=== PATIENT | female | born 1980 ===

== ENCOUNTER 2017-03-12 00:12 | Observation (INO) | payer BC, OTHER ==
--- NOTE | 2017-03-12 00:55 | ED PDOC ---
HPI: General Adult Chief Complaint (Provider): Medical evaluation History Per: EMS, Family History/Exam Limitations: clinical condition <Tamica Anthony Y - Last Filed: 03/13/17 04:15> <Becky Ochoa F - Last Filed: 03/13/17 09:26> Time Seen by Provider: 03/12/17 00:18 Chief Complaint (Nursing): Psychiatric Evaluation Additional Complaint(s): The patient is a 36yo female with history of chronic pain (per prior records), seizures (per family) is brought to the ED by EMS for evaluation s/p and episode of seizure earlier. Per EMS, patient had a post-ictal period where she was confused; they report the patient was able to walk down the stairs to the ambulance but when she saw the stretcher, she became combative and refused to get in. EMS report patient was combative on her way to the ED and was aggressive. A full HPi unavailable from the patient due to her clinical condition. (Tamica Anthony) Past Medical History Reviewed: Vital Signs, Unable To Obtain - Family History Family History: States: Unknown Family Hx <Tamica Anthony Y - Last Filed: 03/13/17 04:15> <Becky Ochoa F - Last Filed: 03/13/17 09:26> Vital Signs: Last Vital Signs Temp 98.2 F 03/12/17 00:17 Pulse 81 03/12/17 11:46 Resp 18 03/12/17 11:46 BP 117/75 03/12/17 11:46 Pulse Ox 100 03/12/17 11:46 - Home Medications Home Medications: Ambulatory Orders Medication Instructions Recorded levETIRAcetam [Keppra] 500 mg PO BID #20 tab 03/12/17 - Allergies Allergies/Adverse Reactions: Allergies Allergy/AdvReac Type Severity Reaction Status Date / Time No Known Allergies Allergy Verified 06/02/16 19:19 Review of Systems Review Of Systems: ROS cannot be obtained secondary to pt's inabilty to answer questions. (patient combative and agressice) <GabrielleEdjudah Y - Last Filed: 03/13/17 04:15> Physical Exam - Reviewed Nursing Documentation Reviewed: Yes Vital Signs Reviewed: Yes - Physical Exam Appears: Positive for: Well, Non-toxic Skin: Positive for: Normal Color, Warm, Dry Cardiovascular/Chest: Positive for: Regular Rate, Rhythm Respiratory: Positive for: Normal Breath Sounds Gastrointestinal/Abdominal: Positive for: Normal Exam Neurologic/Psych: Positive for: Alert (agitated, required sedation for alleviation of agitation and for safety of pt and others around the patinet ( staff in ER)). Negative for: Oriented <Tamica Anthony Y - Last Filed: 03/13/17 04:15> - Laboratory Results Result Diagrams: 03/12/17 01:05 03/12/17 01:05 <Tamica Anthony - Last Filed: 03/13/17 04:15> - Laboratory Results Result Diagrams: 03/12/17 01:05 03/12/17 01:05 - Physician Consult Information Physician Contacted: Kit Dutta <Becky Ochoa - Last Filed: 03/13/17 09:26> - Physician Consult Information Outcome Of Conversation: Recommends Keppra 500 mg bid, will see in office tomorrow @ 9 AM. (Becky Ochoa) ED OBSERVATION Date of observation admission: 03/12/17 Time of observation admission: 00:28 <Tamica Anthony Y - Last Filed: 03/13/17 04:15> <Becky Ochoa - Last Filed: 03/13/17 09:26> - Progress Note Progress Note: 03/12/17 03:49 CT Head FINDINGS: Brain: Minimal atrophy. No intracranial hemorrhage. No mass. No definite edema. Ventricles: No hydrocephalus. Bones/joints: No acute fracture. Soft tissues: Unremarkable. Sinuses: Scattered minimal mucosal thickening. Mastoid air cells: No mastoid effusion. Orbits: Unremarkable as visualized. IMPRESSION: 1. No acute intracranial abnormality. 2. Incidental/non-acute findings are described above. 03/12/17 05:28 Resting in room, vitals stable. 03/12/17 06:52 Patient to be signed out to Dr. Ochoa pending clinical sobriety and urinalysis/ utox 03/13/17 04:14 (Tamica Anthony) Disposition - Patient ED Disposition Is Patient to be Admitted: Transfer of Care - Disposition Disposition: Transfer of Care Disposition Time: 07:28 Patient Signed Over To: Becky Ochoa Handoff Comments: pending clinical sobriety and urinalysis utox <Tamica Anthony Y - Last Filed: 03/13/17 04:15> <Becky Ochoa F - Last Filed: 03/13/17 09:26> - Clinical Impression Clinical Impression: Seizure - Disposition Condition: STABLE
[2017-03-12 01:08] LABS: BASO % 0.5 % (0.0-2.0); EOS # 0.1 K/uL (0.0-0.7); EOS % 1.6 % (0.0-4.0); LYMPH # 0.8 K/uL (1.0-4.3); LYMPH % 13.3 % (20.0-40.0); MEAN CELL VOLUME 65.2 fl (81.0-99.0); MEAN CORPUSCULAR HEMOGLOBIN 19.2 pg (27.0-31.0); MEAN CORPUSCULAR HGB CONC 29.4 g/dL (33.0-37.0); MEAN PLATELET VOLUME 9.7 fl (7.2-11.7); MONO # 0.6 K/uL (0.0-0.8); MONO % 9.6 % (0.0-10.0); NEUT # 4.7 K/uL (1.8-7.0); RED CELL DISTRIBUTION WIDTH 19.7 % (11.5-14.5); WHITE BLOOD COUNT 6.3 K/uL (4.8-10.8)
[2017-03-12 01:18] LABS: ALB/GLOB RATIO 1.6 (1.0-2.1); ALCOHOL SERUM < 10 mg/dl (0-10); ALKALINE PHOSPHATASE 66 U/L (38-126); ALT/SGPT 36 U/L (9-52); AST/SGOT 36 U/L (14-36); BILIRUBIN,TOTAL 0.4 mg/dl (0.2-1.3); BLOOD UREA NITROGEN 16 mg/dl (7-17); CALCIUM 8.9 mg/dL (8.4-10.2); CARBON DIOXIDE 21 mmol/L (22-30); CHLORIDE 106 mmol/L (98-107); GFR AFRICAN-AMERICAN > 60; GLUCOSE,RANDOM 139 mg/dL (65-105); POTASSIUM 3.3 MMOL/L (3.6-5.0); SODIUM 136 mmol/l (132-148); TOTAL PROTEIN 6.8 G/DL (6.3-8.2)
[2017-03-12 03:03] VITALS: TEMP 98.2
--- NOTE | 2017-03-12 03:31 | CT ---
EXAM: CT Head Without Intravenous Contrast CLINICAL HISTORY: 36 years old, female; Signs and symptoms; Altered mental status/memory loss TECHNIQUE: Axial computed tomography images of the head/brain without intravenous contrast. This CT exam was performed using one or more of the following dose reduction techniques: automated exposure control, adjustment of the mA and/or kV according to patient size, and/or use of iterative reconstruction technique. Coronal and sagittal reformatted images were created and reviewed. COMPARISON: No relevant prior studies available. FINDINGS: Brain: Minimal atrophy. No intracranial hemorrhage. No mass. No definite edema. Ventricles: No hydrocephalus. Bones/joints: No acute fracture. Soft tissues: Unremarkable. Sinuses: Scattered minimal mucosal thickening. Mastoid air cells: No mastoid effusion. Orbits: Unremarkable as visualized. IMPRESSION: 1. No acute intracranial abnormality. 2. Incidental/non-acute findings are described above.
[2017-03-12 06:07] VITALS: O2SAT 100
[2017-03-12] MEDS ORDERED: Potassium Chloride 20 mEq ER Tab PO ONE ×2 (06:32→06:50)
[2017-03-12 07:37] LABS: RBC URINE 280 /hpf (0-3); URINE BACTERIA RARE (<OCC); URINE BILIRUBIN NEGATIVE (NEGATIVE); URINE BLOOD LARGE (NEGATIVE); URINE COLOR YELLOW (YELLOW); URINE GLUCOSE (UA) NEG (Normal); URINE KETONE NEGATIVE (NEGATIVE); URINE LEUKOCYTE ESTERASE TRACE Leu/uL (Negative); URINE PROTEIN 30 mg/dL (NEGATIVE); URINE UROBILINOGEN 0.2-1.0 mg/dL (0.2-1.0); WBC URINE 7 /hpf (0-5)
[2017-03-12 11:47] VITALS: BP 117/75; PULSE 81; RESP 18
--- NOTE | 2017-03-13 18:16 | CARD ---
APPROVED REPORT EKG Measurement Heart [id number] <Conclusion> Normal sinus rhythm Normal ECG
== END 2017-03-12 11:46 | disposition home or self-care (01) ==
LOC: H.ER 00:12 → H.EROBSV 00:28
PROVIDERS: ADMIT Emergency Medicine; ATTEND Emergency Medicine
DX: G40.909 Epilepsy, unspecified, not intractable, without status epilepticus (principal)
CPT/HCPCS: 70450; 80053; 81003; 85025; 93005; 96372; 99283; G0378; G0480; J1630; J2060

== ENCOUNTER 2017-04-26 11:26 | Emergency (ER) | payer BC, OTHER ==
[2017-04-26 11:34] VITALS: TEMP 98.5; O2SAT 100
[2017-04-26 11:35] VITALS: BMI 17.9
--- NOTE | 2017-04-26 12:13 | ED PDOC ---
HPI: Female Pain Time Seen by Provider: 04/26/17 12:02 Chief Complaint (Nursing): Female Genitourinary Chief Complaint (Provider): Female Genitourinary History Per: Patient History/Exam Limitations: no limitations Onset/Duration Of Symptoms: Days (x3-4 months) Current Symptoms Are (Timing): Still Present Additional Complaint(s): Lianne Fraser is a 36 year old female presenting to the ED for an evaluation of heavy vaginal bleeding occurring for 3-4 months prior to arrival. The patient states her menstrual cycle lasts for 14-15 days at a time with heavy cramping. She normally has to change her pad 3-4 times a night due to the heavy bleeding, and often experiences hemorrhages causing her to wet her bed and clothes. She states having a laparoscopic procedure completed for her cramps. She takes Keppra for seizures, Naprosyn for headaches, Advil for pain, and Ibuprofen for her back pain. The patient states she cannot see her regulatory consultant until July which prompted her ED visit today. She denies fever or any allergies to medications. PMD: Non H Provider Past Medical History Reviewed: Historical Data, Nursing Documentation, Vital Signs Vital Signs: Last Vital Signs Temp 98.5 F 04/26/17 11:33 Pulse 67 04/26/17 11:33 Resp 18 04/26/17 11:33 BP 109/67 04/26/17 11:33 Pulse Ox 100 04/26/17 11:33 - Family History Family History: States: Unknown Family Hx - Home Medications Home Medications: Ambulatory Orders Medication Instructions Recorded levETIRAcetam [Keppra] 500 mg PO BID #20 tab 03/12/17 - Allergies Allergies/Adverse Reactions: Allergies Allergy/AdvReac Type Severity Reaction Status Date / Time No Known Allergies Allergy Verified 06/02/16 19:19 Review of Systems ROS Statement: Except As Marked, All Systems Reviewed And Found Negative Genitourinary Female: Positive for: Vaginal Bleeding (heavy associated with cramping) Musculoskeletal: Positive for: Back Pain Neurological: Positive for: Headache Physical Exam - Reviewed Nursing Documentation Reviewed: Yes Vital Signs Reviewed: Yes - Physical Exam Appears: Positive for: Non-toxic, No Acute Distress Head Exam: Positive for: ATRAUMATIC, NORMOCEPHALIC Skin: Positive for: Pallor Cardiovascular/Chest: Positive for: Regular Rate, Rhythm. Negative for: Murmur Respiratory: Positive for: Normal Breath Sounds. Negative for: Respiratory Distress Pelvic Exam: Positive for: External Exam Normal, Speculum Exam Normal (no active bleeding of cervix or cervical vault), Blood (very thin bloody fluid in cervix), Tender Uterus (and external bilateral tenderness ), Other (chaperoned by REY Cook) Neurologic/Psych: Positive for: Alert, Oriented (x3) - Laboratory Results Result Diagrams: 04/26/17 13:00 04/26/17 13:00 - ECG O2 Sat by Pulse Oximetry: 100 (RA) Pulse Ox Interpretation: Normal Medical Decision Making Medical Decision Making: Time: 12:02 Impression: Female Genitourinary Plan: * Type and Screen * CMP * CBC (with differential) * Partial Thromboplastin Time * Prothrombin Time * US Transvaginal * Reevaluation Scribe Attestation: Documented by Kasey Harris, acting as a scribe for Freya Ramos MD. Provider Scribe Attestation: All medical record entries made by the Scribe were at my direction and personally dictated by me. I have reviewed the chart and agree that the record accurately reflects my personal performance of the history, physical exam, medical decision making, and the department course for this patient. I have also personally directed, reviewed, and agree with the discharge instructions and disposition. US - submucosal fibroids. anemia at baseline. patietn is not actively bleeding. will discharge. Disposition - Clinical Impression Clinical Impression: Fibroids, submucosal - Patient ED Disposition Is Patient to be Admitted: No Doctor Will See Patient In The: Office Counseled Patient/Family Regarding: Diagnosis, Need For Followup - Disposition Referrals: Kelton Diggs MD [Non-Staff] - Disposition: Routine/Home Disposition Time: 14:00 Condition: STABLE Instructions: Uterine Fibroids (ED) Forms: Actions (Mohawk) Print Language: KYRGYZ - POA Present On Arrival: None
[2017-04-26 13:23] LABS: BASO % 0.5 % (0.0-2.0); EOS # 0.1 K/uL (0.0-0.7); EOS % 2.5 % (0.0-4.0); HEMATOCRIT 26.7 % (34.0-47.0); LYMPH # 0.9 K/uL (1.0-4.3); MEAN CELL VOLUME 66.5 fl (81.0-99.0); MEAN CORPUSCULAR HEMOGLOBIN 19.4 pg (27.0-31.0); MEAN CORPUSCULAR HGB CONC 29.2 g/dL (33.0-37.0); MEAN PLATELET VOLUME 9.7 fl (7.2-11.7); MONO # 0.4 K/uL (0.0-0.8); MONO % 11.8 % (0.0-10.0); NEUT # 1.8 K/uL (1.8-7.0); NEUT % 56.2 % (50.0-75.0); RED CELL DISTRIBUTION WIDTH 20.4 % (11.5-14.5); WHITE BLOOD COUNT 3.2 K/uL (4.8-10.8)
[2017-04-26 13:41] LABS: ALB/GLOB RATIO 1.5 (1.0-2.1); ALKALINE PHOSPHATASE 61 U/L (38-126); ALT/SGPT 41 U/L (9-52); AST/SGOT 38 U/L (14-36); BILIRUBIN,TOTAL 0.3 mg/dl (0.2-1.3); BLOOD UREA NITROGEN 13 mg/dl (7-17); CALCIUM 9.5 mg/dL (8.4-10.2); CARBON DIOXIDE 26 mmol/L (22-30); CHLORIDE 105 mmol/L (98-107); GFR AFRICAN-AMERICAN > 60; GLUCOSE,RANDOM 77 mg/dL (65-105); PARTIAL THROMBOPLASTIN TIME 28.3 Seconds (25.6-37.1); POTASSIUM 4.2 MMOL/L (3.6-5.0); SODIUM 139 mmol/l (132-148); TOTAL PROTEIN 7.2 G/DL (6.3-8.2)
--- NOTE | 2017-04-26 14:13 | US ---
PROCEDURE: HISTORY: prolonged vaginal bleeding COMPARISON: 08/24/2015 TECHNIQUE: Transvaginal FINDINGS: The uterus measures 10.4 x 5.6 x 6.9 centimeters. The endometrium measures 19 millimeters. There is a 2.1 centimeter central submucosal leiomyoma as well as a 4.2 centimeter sub serosal leiomyoma along the fundus posteriorly. The right ovary measures 3.6 x 1.8 x 1.9 centimeters. Left ovary measures 2.6 x 1.8 x 3.9 centimeters. There is no free fluid the pelvis. IMPRESSION: Enlarged leiomyomatous uterus.
[2017-04-26 14:31] VITALS: BP 116/75; PULSE 75; RESP 14
== END 2017-04-26 14:25 | disposition home or self-care (01) ==
LOC: H.ER 11:26
DX: D25.9 Leiomyoma of uterus, unspecified (principal)

== ENCOUNTER 2017-08-07 16:01 | Observation (INO) | payer BC, OTHER ==
[2017-08-07 16:01] VITALS: BMI 17.9
[2017-08-07] MEDS ORDERED: DiphenhydrAMINE 50 mg/ml Inj IVP STA (16:41)
[2017-08-07] MEDS ORDERED: DiphenhydrAMINE 50 mg/ml Inj ONE (16:59)
[2017-08-07 17:12] LABS: BASO % 0.5 % (0.0-2.0); EOS % 0.5 % (0.0-4.0); HEMOGLOBIN 11.2 g/dL (12.0-16.0); LYMPH # 1.2 K/uL (1.0-4.3); LYMPH % 23.5 % (20.0-40.0); MEAN CELL VOLUME 76.2 fl (81.0-99.0); MEAN CORPUSCULAR HEMOGLOBIN 23.8 pg (27.0-31.0); MEAN CORPUSCULAR HGB CONC 31.3 g/dL (33.0-37.0); MEAN PLATELET VOLUME 9.7 fl (7.2-11.7); MONO # 0.3 K/uL (0.0-0.8); NEUT # 3.4 K/uL (1.8-7.0); NEUT % 68.5 % (50.0-75.0); NRBC % 0.1 % (0.0-0.0); RBC 4.71 Mil/uL (3.80-5.20); RED CELL DISTRIBUTION WIDTH 32.5 % (11.5-14.5)
[2017-08-07 17:14] LABS: ALB/GLOB RATIO 1.5 (1.0-2.1); ALBUMIN 4.6 g/dL (3.5-5.0); ALT/SGPT 35 U/L (9-52); AST/SGOT 33 U/L (14-36); BLOOD UREA NITROGEN 9 mg/dl (7-17); CALCIUM 9.8 mg/dL (8.4-10.2); GFR AFRICAN-AMERICAN > 60; GFR NON-AFRICAN AMERICAN > 60
[2017-08-07] MEDS ORDERED: Potassium & Sodium Phosphate PO STA (17:16)
--- NOTE | 2017-08-07 17:25 | ED PDOC ---
HPI: Headache Time Seen by Provider: 08/07/17 16:12 Chief Complaint (Nursing): Headache Chief Complaint (Provider): Headache History Per: Patient History/Exam Limitations: no limitations Onset/Duration Of Symptoms: Hrs (This morning) Current Symptoms Are (Timing): Still Present Additional History Per: Family (Daughter) Additional Complaint(s): Patient is a 37 y/o female with past medical history of chronic headaches, seizures, and iron infusion anemia (she has had transfusions in the past), complaining of headache since waking up this morning. Patient reports the headache involves both sides of the face and the whole head radiating down to the neck. She reports this is similar to previous episodes and she has had for years. Patient also reports she had a seizure this morning, which her daughter reports lasted about 4 minutes. Patient states she did not want to come to the ED initially, but decided to come in when headache worsened. She reports associated nausea, 2 episodes of non-bloody/non-bilious vomiting, lightheadedness, and diffused weakness. She denies any focal weakness/numbness, difficulty with speech, or difficulty walking. PCP: Dr. Kiser Past Medical History Reviewed: Historical Data, Nursing Documentation, Vital Signs Vital Signs: Last Vital Signs Temp 99.1 F 08/07/17 16:05 Pulse 77 08/07/17 16:05 Resp 19 08/07/17 16:05 BP 130/51 L 08/07/17 16:05 Pulse Ox 100 08/07/17 16:05 - Medical History PMH: Anemia (Iron infusion), Seizures Denies: Chronic Kidney Disease Other PMH: Chronic Headache - Surgical History Surgical History: No Surg Hx - Family History Family History: States: No Known Family Hx, Unknown Family Hx - Social History Current smoker - smoking cessation education provided: No Alcohol: None Drugs: Denies - Home Medications Home Medications: Ambulatory Orders Medication Instructions Recorded levETIRAcetam [Keppra] 500 mg PO BID #20 tab 03/12/17 - Allergies Allergies/Adverse Reactions: Allergies Allergy/AdvReac Type Severity Reaction Status Date / Time No Known Allergies Allergy Verified 08/07/17 16:03 Review of Systems ROS Statement: Except As Marked, All Systems Reviewed And Found Negative (and as per HPI) Constitutional: Positive for: Weakness Gastrointestinal: Positive for: Nausea, Vomiting (2 episodes, non-bloody/non- bilious) Neurological: Positive for: Headache, Other (Lightheadedness, No difficulty walking). Negative for: Weakness, Numbness, Change in Speech Physical Exam - Reviewed Nursing Documentation Reviewed: Yes Vital Signs Reviewed: Yes - Physical Exam Appears: Positive for: Non-toxic, In Acute Distress Head Exam: Positive for: ATRAUMATIC, NORMOCEPHALIC Skin: Positive for: Warm, Dry Eye Exam: Positive for: EOMI, PERRL. Negative for: Conjunctival injection ENT: Positive for: Pharynx Is (clear with tacky mucus membranes) Neck: Positive for: Painless ROM, Supple Cardiovascular/Chest: Positive for: Regular Rate, Rhythm, Chest Non Tender. Negative for: Murmur Respiratory: Positive for: Normal Breath Sounds. Negative for: Wheezing, Respiratory Distress Gastrointestinal/Abdominal: Positive for: Soft. Negative for: Tenderness Back: Positive for: Normal Inspection. Negative for: Decreased ROM Extremity: Positive for: Normal ROM. Negative for: Deformity Lymphatic: Negative for: Adenopathy Neurologic/Psych: Positive for: Alert, Oriented (x3), Mood/Affect (anxious mood and sad affect). Negative for: Motor/Sensory Deficits, Aphasia, Facial Droop - Laboratory Results Result Diagrams: 08/07/17 16:52 08/07/17 16:52 - ECG O2 Sat by Pulse Oximetry: 100 (RA) Pulse Ox Interpretation: Normal Medical Decision Making Medical Decision Makin:13 Initial Impression: Breakthrough seizure acute on chronic headache Differential include but not limited to: Electrolyte abnormality, anemia, migraine headache, dehydration, subtherapeutic heparin Initial Plan: --Labs --ED Urine --ED Urine Dipstick --Drug Screen, Urine --Alcohol Serum --Taxicab Coordinator Cont --IV Insertion (Saline lock) --Benadryl 25 mg IVP --Reglan 10 mg IVP --Tylenol 975 mg PO --CT Head W/O Contrast 17:16 --Neutra-Phos 1 pkt PO -Condition discussed with Dr. Kit Dutta who advises repeat CThead and toradol for pain control. EXAM: CT Head Without Intravenous Contrast EXAM DATE/TIME: 08/07/2017 4:40 PM CLINICAL HISTORY: 37 years old, female; Signs and symptoms; Dizziness and other: Headache; Patient HX: Chronic headaches, and seizures; Additional info: Dizziness headache TECHNIQUE: Axial computed tomography images of the head/brain without intravenous contrast. All CT scans at this facility use one or more dose reduction techniques, viz.: automated exposure control; ma/kV adjustment per patient size (including targeted exams where dose is matched to indication; i.e. head); or iterative reconstruction technique. Coronal and sagittal reformatted images were created and reviewed. COMPARISON: CT - HEAD W/O CONTRAST 2017-03-12 02:43 FINDINGS: Brain: Ventricles are normal in size and configuration. There is no midline shift. There is mild prominence of sulci and gyri. There are no intra-axial or extra-axial mass lesions or areas of hemorrhage. There are no abnormal fluid collections. Moran-white differentiation is maintained. Ventricles: See above. Bones: Cranial vault is intact. Soft tissues: unremarkable Sinuses: There is no acute sinusitis. Ears and mastoids: Middle ears and mastoids are unremarkable Orbits: Orbital contents are unremarkable. IMPRESSION: No acute intracranial abnormality Thank you for allowing us to participate in the care of your patient. Dictated and Authenticated by: Eladia Lopez MD 08/07/2017 7:52 PM Eastern Time ([place] & [place]) 8p DW pt findings. Pt reports some improvement of symptoms but continues to have pain and parasthesias. Toradol ordered. VANNA Uribe Hospitalist for hospitalization (for Dr Smith.) Pt with seizure and hypophosphatemia requiring observation. Scribe Attestation: Documented by Son Cano, acting as a scribe for David Sanchez MD Provider Scribe Attestation: All medical record entries made by the Scribe were at my direction and personally dictated by me. I have reviewed the chart and agree that the record accurately reflects my personal performance of the history, physical exam, medical decision making, and the department course for this patient. I have also personally directed, reviewed, and agree with the discharge instructions and disposition. Disposition - Clinical Impression Clinical Impression: Seizure, Hypophosphatemia - Disposition Disposition Time: 20:00 Condition: GUARDED - Pt Status Changed To: Hospital Disposition Of: Observation - POA Present On Arrival: Falls Or Trauma
[2017-08-07 17:27] LABS: IRON 107 ug/dL (37-170)
[2017-08-07 17:36] LABS: % IRON SATURATION 28 % (20-55); TOTAL IRON BINDING CAPACITY 375 ug/dL (250-450)
[2017-08-07 17:41] LABS: SQUAMOUS EPITHIAL 32 /hpf (0-5); URINE BACTERIA OCC (<OCC); URINE BILIRUBIN NEGATIVE (NEGATIVE); URINE BLOOD NEGATIVE (NEGATIVE); URINE CLARITY CLOUDY (Clear); URINE COLOR YELLOW (YELLOW); URINE GLUCOSE (UA) NEG (Normal); URINE LEUKOCYTE ESTERASE NEG Leu/uL (Negative); URINE NITRATE NEGATIVE (NEGATIVE); URINE PROTEIN NEGATIVE (NEGATIVE); URINE UROBILINOGEN 0.2-1.0 mg/dL (0.2-1.0)
[2017-08-07 17:46] LABS: BARBITURATES, UR NEGATIVE (NEGATIVE); BENZODIAZEPINES, UR NEGATIVE (NEGATIVE); OPIATES, UR NEGATIVE (NEGATIVE); PHENCYCLIDINE, UR NEGATIVE (NEGATIVE)
[2017-08-07 17:48] LABS: FERRITIN 85.5 ng/Ml (6.24-137.0)
--- NOTE | 2017-08-07 19:52 | CT ---
EXAM: CT Head Without Intravenous Contrast EXAM DATE/TIME: 08/07/2017 4:40 PM CLINICAL HISTORY: 37 years old, female; Signs and symptoms; Dizziness and other: Headache; Patient HX: Chronic headaches, and seizures; Additional info: Dizziness headache TECHNIQUE: Axial computed tomography images of the head/brain without intravenous contrast. All CT scans at this facility use one or more dose reduction techniques, viz.: automated exposure control; ma/kV adjustment per patient size (including targeted exams where dose is matched to indication; i.e. head); or iterative reconstruction technique. Coronal and sagittal reformatted images were created and reviewed. COMPARISON: CT - HEAD W/O CONTRAST 2017-03-12 02:43 FINDINGS: Brain: Ventricles are normal in size and configuration. There is no midline shift. There is mild prominence of sulci and gyri. There are no intra-axial or extra-axial mass lesions or areas of hemorrhage. There are no abnormal fluid collections. Moran-white differentiation is maintained. Ventricles: See above. Bones: Cranial vault is intact. Soft tissues: unremarkable Sinuses: There is no acute sinusitis. Ears and mastoids: Middle ears and mastoids are unremarkable Orbits: Orbital contents are unremarkable. IMPRESSION: No acute intracranial abnormality
--- NOTE | 2017-08-07 21:14 | CP.PCM.HP ---
History of Present Illness - History of Present Illness History of Present Illness: CC: Breakthrough seizures, DOUGHERTY HPI: This is a 37 y/o female with MHx significant for chronic DOUGHERTY (unclear diagnosis), seizures, and chronic Fe deficiency anemia who comes in beceause she had a fall this AM and hit head and had a DOUGHERTY since then, she also had a breakthrough seizure this AM. Per the daughter, seizure lasted for 4 minutes. She recovered alright from there, and only came in because of persistent DOUGHERTY. Patient did report some nausea earlier, but that has resolved. Denies CP/SOB or focal weakness. PCP: Dr. Kiser ROS: 14 systems reviewed, negative other than HPI MHx: Seizure d/o, DOUGHERTY, anemia SHx: None Allergies: NKDA Medications: As per med rec Family Hx: Reviewed, no relevant findings Social Hx: Lives with family, no tobacco, no EtOH Present on Admission - Present on Admission Any Indicators Present on Admission: No Past Patient History - Past Social History Alcohol: None Drugs: Denies - CARDIAC Hx Cardiac Disorders: No - PULMONARY Hx Respiratory Disorders: No - NEUROLOGICAL Hx Seizures: Yes - HEENT Hx HEENT Problems: No - RENAL Hx Chronic Kidney Disease: No - ENDOCRINE/METABOLIC Hx Endocrine Disorders: No - HEMATOLOGICAL/ONCOLOGICAL Hx Anemia: Yes (Iron infusion) - INTEGUMENTARY Hx Dermatological Problems: No - MUSCULOSKELETAL/RHEUMATOLOGICAL Hx Musculoskeletal Disorders: No - GASTROINTESTINAL Hx Gastrointestinal Disorders: No - GENITOURINARY/GYNECOLOGICAL Hx Genitourinary Disorders: No - PSYCHIATRIC Hx Psychophysiologic Disorder: No Hx Substance Use: No - SURGICAL HISTORY Hx Surgeries: No - ANESTHESIA Hx Anesthesia: No Meds Allergies/Adverse Reactions: Allergies Allergy/AdvReac Type Severity Reaction Status Date / Time No Known Allergies Allergy Verified 08/07/17 16:03 Physical Exam - Constitutional Appears: No Acute Distress - Head Exam Head Exam: ATRAUMATIC, NORMOCEPHALIC - Eye Exam Eye Exam: EOMI, PERRL - ENT Exam ENT Exam: Mucous Membranes Moist - Neck Exam Neck exam: Positive for: Full Rom - Respiratory Exam Respiratory Exam: Clear to Auscultation Bilateral, NORMAL BREATHING PATTERN - Cardiovascular Exam Cardiovascular Exam: REGULAR RHYTHM, +S1, +S2 - GI/Abdominal Exam GI & Abdominal Exam: Normal Bowel Sounds, Soft - Extremities Exam Extremities exam: Positive for: full ROM, normal inspection - Neurological Exam Neurological exam: Alert, CN II-XII Intact, Oriented x3 - Psychiatric Exam Psychiatric exam: Normal Affect, Normal Mood - Skin Skin Exam: Dry, Warm Results - Vital Signs Recent Vital Signs: Last Vital Signs Temp 99.1 F 08/07/17 16:05 Pulse 65 08/07/17 18:13 Resp 18 08/07/17 18:13 BP 100/65 08/07/17 18:13 Pulse Ox 100 08/07/17 20:38 - Labs Result Diagrams: 08/07/17 16:52 08/07/17 16:52 Labs: Laboratory Results - last 24 hr 08/07/17 08/07/17 08/07/17 16:28 16:52 16:52 WBC 5.0 D RBC 4.71 Hgb 11.2 L D Hct 35.9 MCV 76.2 L D MCH 23.8 L MCHC 31.3 L RDW 32.5 H Plt Count 138 MPV 9.7 Neut % (Auto) 68.5 Lymph % (Auto) 23.5 [place] % (Auto) 7.0 Eos % (Auto) 0.5 Baso % (Auto) 0.5 Neut # 3.4 Lymph # 1.2 [place] # 0.3 Eos # 0.0 Baso # 0.0 Sodium Potassium Chloride Carbon Dioxide Anion Gap BUN Creatinine Est GFR ( Amer) Est GFR (Non-Af Amer) POC Glucose (mg/dL) 77 Random Glucose Calcium Phosphorus Magnesium Iron TIBC % Saturation Ferritin Total Bilirubin AST ALT Alkaline Phosphatase Total Protein Albumin Globulin Albumin/Globulin Ratio Urine Color Urine Clarity Urine pH Ur Specific [place] Urine Protein Urine Glucose (UA) Urine Ketones Urine Blood Urine Nitrate Urine Bilirubin Urine Urobilinogen Ur Leukocyte Esterase Urine RBC (Auto) Urine Microscopic WBC Ur Squamous Epith Cells Urine Bacteria Urine Opiates Screen Urine Methadone Screen Ur Barbiturates Screen Carbamazepine < 3.0 L Ur Phencyclidine Scrn Ur Amphetamines Screen U Benzodiazepines Scrn U Oth Cocaine Metabols U Cannabinoids Screen Alcohol, Quantitative Blood Type Antibody Screen BBK History Checked 08/07/17 08/07/17 08/07/17 16:52 16:52 16:52 WBC RBC Hgb Hct MCV MCH MCHC RDW Plt Count MPV Neut % (Auto) Lymph % (Auto) [place] % (Auto) Eos % (Auto) Baso % (Auto) Neut # Lymph # [place] # Eos # Baso # Sodium 137 Potassium 3.6 Chloride 104 Carbon Dioxide 23 Anion Gap 14 BUN 9 Creatinine 0.7 Est GFR ( Amer) > 60 Est GFR (Non-Af Amer) > 60 POC Glucose (mg/dL) Random Glucose 83 Calcium 9.8 Phosphorus 1.1 L Magnesium 2.0 Iron 107 TIBC 375 % Saturation 28 Ferritin 85.5 Total Bilirubin 0.3 AST 33 ALT 35 Alkaline Phosphatase 74 Total Protein 7.7 Albumin 4.6 Globulin 3.1 Albumin/Globulin Ratio 1.5 Urine Color Urine Clarity Urine pH Ur Specific [place] Urine Protein Urine Glucose (UA) Urine Ketones Urine Blood Urine Nitrate Urine Bilirubin Urine Urobilinogen Ur Leukocyte Esterase Urine RBC (Auto) Urine Microscopic WBC Ur Squamous Epith Cells Urine Bacteria Urine Opiates Screen Urine Methadone Screen Ur Barbiturates Screen Carbamazepine Ur Phencyclidine Scrn Ur Amphetamines Screen U Benzodiazepines Scrn U Oth Cocaine Metabols U Cannabinoids Screen Alcohol, Quantitative < 10 Blood Type O NEGATIVE Antibody Screen Negative BBK History Checked Patient has bt 08/07/17 08/07/17 17:25 17:34 WBC RBC Hgb Hct MCV MCH MCHC RDW Plt Count MPV Neut % (Auto) Lymph % (Auto) [place] % (Auto) Eos % (Auto) Baso % (Auto) Neut # Lymph # [place] # Eos # Baso # Sodium Potassium Chloride Carbon Dioxide Anion Gap BUN Creatinine Est GFR ( Amer) Est GFR (Non-Af Amer) POC Glucose (mg/dL) Random Glucose Calcium Phosphorus Magnesium Iron TIBC % Saturation Ferritin Total Bilirubin AST ALT Alkaline Phosphatase Total Protein Albumin Globulin Albumin/Globulin Ratio Urine Color Yellow Urine Clarity Cloudy Urine pH 8.0 Ur Specific [place] < 1.005 Urine Protein Negative Urine Glucose (UA) Neg Urine Ketones Negative Urine Blood Negative Urine Nitrate Negative Urine Bilirubin Negative Urine Urobilinogen 0.2-1.0 Ur Leukocyte Esterase Neg Urine RBC (Auto) < 1 Urine Microscopic WBC 4 Ur Squamous Epith Cells 32 H Urine Bacteria Occ H Urine Opiates Screen Negative Urine Methadone Screen Negative Ur Barbiturates Screen Negative Carbamazepine Ur Phencyclidine Scrn Negative Ur Amphetamines Screen Negative U Benzodiazepines Scrn Negative U Oth Cocaine Metabols Negative U Cannabinoids Screen Negative Alcohol, Quantitative Blood Type Antibody Screen BBK History Checked - Imaging and Cardiology CT scan - head Status: Image reviewed by me (WNL), Report reviewed by me Assessment & Plan (1) Seizure Assessment and Plan: 37 y/o female with known seizure d/o presenting with breakthrough seizure as well as hypophosphotemia. -Admit tele obs -Continue Keppra, PRN Ativan for breakthrough seizures -Neuro consult in AM (Tra) -Repeat phos level in AM, replete again as appropriate -SCDs for DVT PPx Status: Acute (2) Hypophosphatemia Status: Acute (3) DVT prophylaxis Status: Acute
[2017-08-08 00:22] VITALS: RESP 18
[2017-08-08 06:40] LABS: HEMOGLOBIN 10.1 g/dL (12.0-16.0); MEAN CORPUSCULAR HEMOGLOBIN 23.9 pg (27.0-31.0); MEAN CORPUSCULAR HGB CONC 29.9 g/dL (33.0-37.0); RBC 4.24 Mil/uL (3.80-5.20); RED CELL DISTRIBUTION WIDTH 32.6 % (11.5-14.5); WHITE BLOOD COUNT 4.3 K/uL (4.8-10.8)
[2017-08-08 06:57] LABS: BLOOD UREA NITROGEN 16 mg/dl (7-17); CALCIUM 8.9 mg/dL (8.4-10.2); GFR AFRICAN-AMERICAN > 60; GFR NON-AFRICAN AMERICAN > 60
--- NOTE | 2017-08-08 08:45 | CARD ---
APPROVED REPORT EKG Measurement Heart [id number] <Conclusion> Normal sinus rhythm Normal ECG
[2017-08-08] MEDS ORDERED: Potassium Chloride 20 mEq/15 ml LIQ UD PO ONE (10:38)
--- NOTE | 2017-08-08 10:56 | CP.PCM.DIS ---
Provider - Provider Date of Admission: 08/07/17 20:29 Attending physician: Cierra Uribe MD Time Spent in preparation of Discharge (in minutes): 30 Diagnosis - Discharge Diagnosis (1) Hypophosphatemia Status: Acute (2) Seizure Status: Acute Hospital Course - Lab Results Lab Results: Most Recent Lab Values WBC 4.3 K/uL (4.8-10.8) L 08/08/17 05:35 RBC 4.24 Mil/uL (3.80-5.20) 08/08/17 05:35 Hgb 10.1 g/dL (12.0-16.0) L 08/08/17 05:35 Hct 34.0 % (34.0-47.0) 08/08/17 05:35 MCV 80.0 fl (81.0-99.0) L D 08/08/17 05:35 MCH 23.9 pg (27.0-31.0) L 08/08/17 05:35 MCHC 29.9 g/dL (33.0-37.0) L 08/08/17 05:35 RDW 32.6 % (11.5-14.5) H 08/08/17 05:35 Plt Count 129 K/uL (130-400) L 08/08/17 05:35 MPV 9.7 fl (7.2-11.7) 08/07/17 16:52 Neut % (Auto) 68.5 % (50.0-75.0) 08/07/17 16:52 Lymph % (Auto) 23.5 % (20.0-40.0) 08/07/17 16:52 [place] % (Auto) 7.0 % (0.0-10.0) 08/07/17 16:52 Eos % (Auto) 0.5 % (0.0-4.0) 08/07/17 16:52 Baso % (Auto) 0.5 % (0.0-2.0) 08/07/17 16:52 Neut # 3.4 K/uL (1.8-7.0) 08/07/17 16:52 Lymph # 1.2 K/uL (1.0-4.3) 08/07/17 16:52 [place] # 0.3 K/uL (0.0-0.8) 08/07/17 16:52 Eos # 0.0 K/uL (0.0-0.7) 08/07/17 16:52 Baso # 0.0 K/uL (0.0-0.2) 08/07/17 16:52 Sodium 140 mmol/l (132-148) 08/08/17 05:35 Potassium 3.5 MMOL/L (3.6-5.0) L 08/08/17 05:35 Chloride 108 mmol/L (98-107) H 08/08/17 05:35 Carbon Dioxide 24 mmol/L (22-30) 08/08/17 05:35 Anion Gap 12 (10-20) 08/08/17 05:35 BUN 16 mg/dl (7-17) 08/08/17 05:35 Creatinine 0.8 mg/dl (0.7-1.2) 08/08/17 05:35 Est GFR ( Amer) > 60 08/08/17 05:35 Est GFR (Non-Af Amer) > 60 08/08/17 05:35 POC Glucose (mg/dL) 77 mg/dL (65-110) 08/07/17 16:28 Random Glucose 84 mg/dL (65-105) 08/08/17 05:35 Calcium 8.9 mg/dL (8.4-10.2) 08/08/17 05:35 Phosphorus 3.9 mg/dl (2.5-4.5) 08/08/17 05:35 Magnesium 2.0 MG/DL (1.6-2.3) 08/07/17 16:52 Iron 107 ug/dL (37-170) 08/07/17 16:52 TIBC 375 ug/dL (250-450) 08/07/17 16:52 % Saturation 28 % (20-55) 08/07/17 16:52 Ferritin 85.5 ng/Ml (6.24-137.0) 08/07/17 16:52 Total Bilirubin 0.3 mg/dl (0.2-1.3) 08/07/17 16:52 AST 33 U/L (14-36) 08/07/17 16:52 ALT 35 U/L (9-52) 08/07/17 16:52 Alkaline Phosphatase 74 U/L (38-126) 08/07/17 16:52 Total Protein 7.7 G/DL (6.3-8.2) 08/07/17 16:52 Albumin 4.6 g/dL (3.5-5.0) 08/07/17 16:52 Globulin 3.1 gm/dL (2.2-3.9) 08/07/17 16:52 Albumin/Globulin Ratio 1.5 (1.0-2.1) 08/07/17 16:52 Urine Color Yellow (YELLOW) 08/07/17 17:34 Urine Clarity Cloudy (Clear) 08/07/17 17:34 Urine pH 8.0 (5.0-8.0) 08/07/17 17:34 Ur Specific [place] < 1.005 (1.003-1.030) 08/07/17 17:34 Urine Protein Negative mg/dL (NEGATIVE) 08/07/17 17:34 Urine Glucose (UA) Neg mg/dL (Normal) 08/07/17 17:34 Urine Ketones Negative mg/dL (NEGATIVE) 08/07/17 17:34 Urine Blood Negative (NEGATIVE) 08/07/17 17:34 Urine Nitrate Negative (NEGATIVE) 08/07/17 17:34 Urine Bilirubin Negative (NEGATIVE) 08/07/17 17:34 Urine Urobilinogen 0.2-1.0 mg/dL (0.2-1.0) 08/07/17 17:34 Ur Leukocyte Esterase Neg [place]/uL (Negative) 08/07/17 17:34 Urine RBC (Auto) < 1 /hpf (0-3) 08/07/17 17:34 Urine Microscopic WBC 4 /hpf (0-5) 08/07/17 17:34 Ur Squamous Epith Cells 32 /hpf (0-5) H 08/07/17 17:34 Urine Bacteria Occ (<OCC) H 08/07/17 17:34 Urine Opiates Screen Negative (NEGATIVE) 08/07/17 17:25 Urine Methadone Screen Negative (NEGATIVE) 08/07/17 17:25 Ur Barbiturates Screen Negative (NEGATIVE) 08/07/17 17:25 Carbamazepine < 3.0 ug/mL (4.0-12.0) L 08/07/17 16:52 Ur Phencyclidine Scrn Negative (NEGATIVE) 08/07/17 17:25 Ur Amphetamines Screen Negative (NEGATIVE) 08/07/17 17:25 U Benzodiazepines Scrn Negative (NEGATIVE) 08/07/17 17:25 U Oth Cocaine Metabols Negative (NEGATIVE) 08/07/17 17:25 U Cannabinoids Screen Negative (NEGATIVE) 08/07/17 17:25 Alcohol, Quantitative < 10 mg/dl (0-10) 08/07/17 16:52 Blood Type O NEGATIVE 08/07/17 16:52 Antibody Screen Negative 08/07/17 16:52 BBK History Checked Patient has bt 08/07/17 16:52 - Hospital Course Hospital Course: HPI: This is a 37 y/o female with MHx significant for chronic DOUGHERTY (unclear diagnosis) , seizures, and chronic Fe deficiency anemia who comes in beceause she had a fall this AM and hit head and had a DOUGHERTY since then, she also had a breakthrough seizure this AM. Per the daughter, seizure lasted for 4 minutes. She recovered alright from there, and only came in because of persistent DOUGHERTY. Patient did report some nausea earlier, but that has resolved. Denies CP/SOB or focal weakness. 37 y/o female with known seizure d/o presenting with breakthrough seizure as well as hypophosphotemia. Phos improved. Neuro consulted, Dr. Santacruz, who increased Carbamazepine to 600 mg BID. Patient to follow up in office in one week. Discussed with Neuro, patient stable for discharge home and follow up with Neuro and PCP in one week. Discharge Exam - Head Exam Head Exam: ATRAUMATIC, NORMOCEPHALIC - Eye Exam Eye Exam: EOMI, Normal appearance, PERRL - ENT Exam ENT Exam: Mucous Membranes Moist, Normal Oropharynx - Neck Exam Neck exam: Full Rom, Normal Inspection - Respiratory Exam Respiratory Exam: Clear to PA & Lateral, NORMAL BREATHING PATTERN - Cardiovascular Exam Cardiovascular Exam: RRR, +S1, +S2 - GI/Abdominal Exam GI & Abdominal Exam: Normal Bowel Sounds, Soft. absent: Tenderness - Extremities Exam Extremities exam: normal capillary refill, pedal pulses present - Back Exam Back exam: absent: CVA tenderness (L), CVA tenderness (R) - Neurological Exam Neurological exam: Alert, Oriented x3 - Psychiatric Exam Psychiatric exam: Normal Affect, Normal Mood - Skin Skin Exam: Dry, Warm Discharge Plan - Follow Up Plan Condition: GUARDED Disposition: HOME/ ROUTINE Additional Instructions: INCREASE CARBAMAZEPINE TO 600 MG BID TO FOLLOW UP WITH DR. SANTACRUZ IN OFFICE ONE WEEK. AUMENTE LA CARBAMAZEPINE A 600 MG DOS VECES AL DA. SEGUIMIENTO CON EL DR. SANTACRUZ EN OFICINA EN [place] Referrals: Kit Santacruz MD [Medical Doctor] -
[2017-08-08 12:14] VITALS: BP 107/73; PULSE 65; TEMP 98; O2SAT 100
--- NOTE | 2017-08-09 10:39 | EEG ---
DATE: 08/07/2017 This is a 16-channel electroencephalogram of awake and drowsy adult. During the study, photic stimulation was performed. Hyperventilation was not performed. The resting electroencephalogram consists of 20 to 30 microvolt high theta mixed with low alpha activities seen at the parietal and occipital leads. Anteriorly, fast activity superimposed with 2 to 3 Hz delta activities seen. The photic stimulation did not evoke driving response noted at 2 to 20 Hz. There is an asymmetric response to compare with the right to the left side, slow activities noted over the left parietal and occipital leads consistent with structural cause. Please correlate the findings with neurological and radiological studies. However, during the study no paroxysmal activities noted. Kit Dutta MD
== END 2017-08-08 15:25 | disposition home or self-care (01) ==
LOC: H.ER 16:01 → H.ERHOLD 20:29 → H.TEL 22:13
PROVIDERS: ADMIT Internal Medicine; ATTEND Internal Medicine
DX: G40.909 Epilepsy, unspecified, not intractable, without status epilepticus (principal); R51 Headache; D50.9 Iron deficiency anemia, unspecified; E83.39 Other disorders of phosphorus metabolism
CPT/HCPCS: 36415; 70450; 80048; 80053; 80156; 80320; 80324; 80345; 80346; 80349; 80353; 80358; 80361; 81003; 81025; 82728; 82948; 83540; 83550; 83735; 83992; 84100; 85025; 85027; 86850; 86900; 93005; 95816; 96374; 96375; 96376; 99285; G0378; J1200; J1885; J2765